=== PATIENT | male | born 1965 | race African-American/Black ===

== ENCOUNTER → 2021-06-25 14:04 | Outpatient (CLI) | payer BC, SELFPAY ==
--- NOTE | ~2021-06-25 | MR_ITS ---
EXAMINATION: MR femur RT wo/w con DATE: 06/25/2021 16:58 INDICATION: Persistent right thigh pain post blunt trauma 3 weeks prior. TECHNIQUE: Magnetic resonance imaging (MRI) of the right thigh/femur was performed without and with a nterior mL Multihance intravenous contrast. A marker was placed over the mass. Sequences included ax ial, sagittal and coronal T1-weighted FSE, sagittal and coronal fluid sensitive FSE STIR, axial T2-we ighted FS FSE, axial T1-weighted FS FSE and post contrast axial, sagittal and coronal T1-weighted FS FSE. COMPARISON: None. FINDINGS: There is feathery muscular edema at the lateral side of the vastus intermedius muscle at the mid thig h approximately 25 cm distal to the apex of the femoral head. This surrounds a couple peripherally en hancing T1 and T2 hyperintense complex fluid collections measuring 8 x 5 mm and 11 x 5 mm. Of the cli nical history as well as the increased T1 signal would be most consistent with hematomas with archite ctural distortion along the immediately adjacent muscle fibers consistent with small muscle tears. Re mainder of the musculature in the bilateral thighs appears normal. There is normal bone marrow signal throughout. No other abnormal fluid collections or abnormally enhancing fluid collections identified . No pathologically enlarged inguinal lymphadenopathy. IMPRESSION: 1. A couple tiny intramuscular hematomas at the site of small muscle tears in the lateral aspect of t he mid right vastus intermedius muscle. Reviewed, dictated and finalized at location A. IMPRESSION: 1. A couple tiny intramuscular hematomas at the site of small muscle tears in t he lateral aspect of the mid right vastus intermedius muscle.
[2021-06-25 15:25] LABS: Estimated Glomerular Filt Rate > 60
== END ==
DX: M79.604 Pain in right leg (principal)
CPT/HCPCS: 73720; A9577